=== PATIENT | male | born 1960 | race African-American/Black ===

== ENCOUNTER → 2017-03-28 | Outpatient (CLI) | payer OTHER ==
[~2017-03-28] MED LIST: GADOBUTROL 10 MMOL/10 ML PFS ONE; LISI-167 PO
== END | disposition home or self-care (01) ==
LOC: RAD 12:33
PROVIDERS: ATTEND Family Medicine Adult Medicine
DX: G93.9 Disorder of brain, unspecified (principal)
CPT/HCPCS: 70553; A9585